=== PATIENT | female | born 2000 | race Two or more races ===

== ENCOUNTER 2018-05-10 19:17 | Emergency (ER) | payer MEDICAID ==
[2018-05-10 19:38] LABS: ABSOLUTE EOSINOPHILS # (AUTO) 0.1 10^3/uL (0.0-0.6); ABSOLUTE LYMPHOCYTES (AUTO) 1.9 10^3/uL (0.5-4.7); ABSOLUTE MONOCYTES (AUTO) 0.6 10^3/uL (0.1-1.4); ABSOLUTE NEUT (AUTO) 5.8 10^3/uL (1.7-8.2); BASOPHILS % (AUTO) 0.3 % (0-2); HEMATOCRIT 36.2 % (36.0-47.0); HEMOGLOBIN 12.1 g/dL (12.0-15.5); LYMPHOCYTES % (AUTO) 22.8 % (13-45); MEAN CORPUSCULAR HEMOGLOBIN 24.3 pg (27.0-33.4); MEAN CORPUSCULAR HGB CONC 33.5 g/dL (32.0-36.0); MEAN CORPUSCULAR VOLUME 73 fl (80-97); MONOCYTES % (AUTO) 6.7 % (3-13); PLATELET COUNT 369 10^3/uL (150-450); RED BLOOD COUNT 4.99 10^6/uL (3.72-5.28); RED CELL DISTRIBUTION WIDTH 17.7 % (11.5-14.0); SEGMENTED NEUTROPHILS % (AUTO) 69.2 % (42-78); TOTAL CELLS COUNTED % (AUTO) 100 %; WHITE BLOOD COUNT 8.3 10^3/uL (4.0-10.5)
[2018-05-10 20:00] LABS: ALANINE AMINOTRANSFERASE 26 U/L (9-52); ALBUMIN 4.6 g/dL (3.5-5.0); ALKALINE PHOSPHATASE 62 U/L (38-126); ANION GAP 14 (5-19); ASPARTATE AMINO TRANSFERASE 24 U/L (14-36); BILIRUBIN,DIRECT 0.2 mg/dL (0.0-0.4); BILIRUBIN,TOTAL 0.5 mg/dL (0.2-1.3); BLOOD UREA NITROGEN 9 mg/dL (7-20); CALCIUM 9.7 mg/dL (8.4-10.2); CARBON DIOXIDE 27 mmol/L (22-30); CHLORIDE 102 mmol/L (98-107); GLUCOSE 84 mg/dL (75-110); POTASSIUM 3.6 mmol/L (3.6-5.0); SODIUM 142.6 mmol/L (137-145); TOTAL PROTEIN 7.9 g/dL (6.3-8.2)
[2018-05-10 20:02] LABS: ACETAMINOPHEN < 10 ug/mL (10-30); ALCOHOL < 10 mg/dL (NONE DETECTED); SALICYLATE < 1.0 mg/dL (2.0-20.0)
--- NOTE | 2018-05-10 20:20 | ER Document Report ---
ED General - General Chief Complaint: Possible Overdose Stated Complaint: POSSIBLE OVERDOSE Time Seen by Provider: 05/10/18 19:28 Cannot obtain history due to: Intoxicated, Altered mental status Notes: Patient is a 18-year-old female who presents after ingesting approximately 225 mg of diphenhydramine as well as an unknown cough medicine. History is difficult to obtain as the patient is somewhat lethargic on assessment but states that she was simply trying to sleep, has been stressed out recently, denies any attempt at trying to harm herself. She denies any wants of going to sleep and not waking up. She is unable to explain why she took so much other than saying that she has been having difficulty sleeping and really wanted to get a good night sleep. Apparently her significant other his eeo officer was at the house today, contacted EMS when they discovered the amount that she had consumed. Patient denies psychiatric history or any previous suicide attempts. TRAVEL OUTSIDE OF THE [place] IN LAST 30 DAYS: No - Related Data Allergies/Adverse Reactions: No Known Allergies Allergy (Unverified 05/10/18 19:39) Past Medical History - General Information source: Patient Cannot obtain history due to: Altered mental status - Social History Smoking Status: Former Smoker Chew tobacco use (# tins/day): No Frequency of alcohol use: None Drug Abuse: None Lives with: Spouse/Significant other Family History: Reviewed & Not Pertinent Patient has suicidal ideation: No Patient has homicidal ideation: No Renal/ Medical History: Denies: Hx Peritoneal Dialysis Review of Systems - Review of Systems -: Yes ROS unobtainable due to patient's medical condition Physical Exam - Vital signs Vitals: Resp Pulse Ox 20 100 05/10/18 19:22 05/10/18 19:22 Interpretation: Normal Notes: PHYSICAL EXAMINATION: GENERAL: Somewhat lethargic but responsive. Appears sedated HEAD: Atraumatic, normocephalic. EYES: Pupils equal round and reactive to light, extraocular movements intact, sclera anicteric, conjunctiva are normal. ENT: nares patent, oropharynx clear without exudates. Moist mucous membranes. NECK: Normal range of motion, supple without lymphadenopathy LUNGS: Breath sounds clear to auscultation bilaterally and equal. No wheezes rales or rhonchi. HEART: Regular rate and rhythm without murmurs ABDOMEN: Soft, nontender, normoactive bowel sounds. No guarding, no rebound. No masses appreciated. EXTREMITIES: Normal range of motion, no pitting or edema. No cyanosis. NEUROLOGICAL: No focal neurological deficits. Moves all extremities spontaneously and on command. PSYCH: Drowsy, sedated SKIN: Warm, Dry, normal turgor, no rashes or lesions noted. Course - Re-evaluation Re-evalutation: 05/10/18 20:55 Presentation of an overdose on diphenhydramine and unverified cough syrup what appears to be patient reported attempted just trying to sleep albeit with an inappropriate dose of medication. She continues to deny self-harm. Will reassess the patient when she is clinically sober to assess for safety. Poison control has been contacted, no specific recommendations. The patient continues on cardiac rehabilitation specialist. Standard psychiatric screening labs have been sent. 05/11/18 01:49 Patient is now completely awake, again continues to verify that at no point where she is attempting to harm herself, admits that she did not understand that taking this much Benadryl was dangerous. She has been cleared by poison control. Given that the patient provides a reasonable history, continues to adamantly deny any suicidal intent she is cleared for discharge and does not meet involuntary commitment criteria. At this time will discharge with return precautions and follow-up recommendations. Verbal discharge instructions given a the bedside and opportunity for questions given. Medication warnings reviewed. Patient is in agreement with this plan and has verbalized understanding of return precautions and the need for primary care follow-up in the next 24-72 hours. - Vital Signs Vital signs: Temp Pulse Resp BP Pulse Ox 99.5 F 87 16 128/84 H 100 05/10/18 19:28 05/10/18 19:28 05/11/18 01:01 05/11/18 01:01 05/11/18 01:01 - Laboratory Result Diagrams: 05/10/18 19:20 05/10/18 19:20 Laboratory results interpreted by me: 05/10/18 05/10/18 19:20 19:20 MCV 73 L MCH 24.3 L RDW 17.7 H Salicylates < 1.0 L Acetaminophen < 10 L Discharge - Discharge Clinical Impression: Diphenhydramine overdose Qualifiers: Encounter type: initial encounter Injury intent: accidental or unintentional Qualified Code(s): T45.0X1A - Poisoning by antiallergic and antiemetic drugs, accidental (unintentional), initial encounter Condition: Good Disposition: HOME, SELF-CARE Additional Instructions: Please never misuse any medication that you are either prescribed or purchase [id number]. Take exactly as directed as misuse of common medications such as Benadryl can be very dangerous. Return for any additional concerns you may have.
[2018-05-11 02:03] VITALS: BP 120/76
== END 2018-05-11 05:45 | disposition home or self-care (01) ==
LOC: ER 19:17
DX: T45.0X1A Poisoning by antiallergic and antiemetic drugs, accidental (unintentional), initial encounter (principal); R41.82 Altered mental status, unspecified; R53.83 Other fatigue; Z79.899 Other long term (current) drug therapy; Z87.891 Personal history of nicotine dependence
CPT/HCPCS: 36415; 80053; 80307; 84703; 85025; 99284

== ENCOUNTER 2018-09-07 19:03 | Emergency (ER) | payer MEDICAID ==
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
[2018-09-07 20:17] LABS: APPEARANCE,URINE SLIGHTLY-CLOUDY; BILIRUBIN,URINE NEGATIVE (NEGATIVE); COLOR,URINE YELLOW; GLUCOSE, URINE NEGATIVE (NEGATIVE); KETONES,URINE NEGATIVE (NEGATIVE); LEUKOCYTE ESTERASE,URINE LARGE (NEGATIVE); NITRITE,URINE NEGATIVE (NEGATIVE); PROTEIN,URINE NEGATIVE (NEGATIVE); URINE SPECIFIC GRAVITY 1.017; UROBILINOGEN,URINE NEGATIVE mg/dL (<2.0)
[2018-09-07 20:29] LABS: BACTERIA (WET MOUNT) 4+ BACTERIA SEEN; EPITHELIALS (WET MOUNT) 3+ EPITHELIALS SEEN; RBCS (WET MOUNT) FEW RBCS SEEN; T.VAGINALIS (WET MOUNT) NO TRICHOMONAS SEEN; WBCS (WET MOUNT) 2+ WBCS SEEN; YEAST (WET MOUNT) YEAST SEEN
[2018-09-07] MEDS ORDERED: CEFTRIAXONE INJ 250 MG VIAL IM ONE (20:46)
[2018-09-07] MEDS ORDERED: LIDOCAINE 1% INJ-PF (10 MG/ML) 30 ML SDV INJ ONE (20:46)
[2018-09-07] MEDS ORDERED: AZITHROMYCIN 250 MG TABLET PO ONE (20:46)
[2018-09-07] MEDS ORDERED: FLUCONAZOLE 100 MG TABLET PO ONE (20:47)
[2018-09-07 21:50] LABS: CHLAM PCR NOT DETECTED (NOT DETECT); GON PCR NOT DETECTED (NOT DETECT)
[2018-09-07 21:59] VITALS: BP 135/84
== END 2018-09-07 22:00 | disposition home or self-care (01) ==
LOC: ER 19:03
DX: B37.49 Other urogenital candidiasis (principal)
CPT/HCPCS: 99283; 96372; 87210; 81001; 87491; 87591; Q0144; J3490 ×2; J0696

== ENCOUNTER 2019-06-12 22:14 | Emergency (ER) | payer SELFPAY ==
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
[2019-06-12 23:22] LABS: APPEARANCE,URINE CLOUDY; BILIRUBIN,URINE NEGATIVE (NEGATIVE); COLOR,URINE YELLOW; GLUCOSE, URINE NEGATIVE (NEGATIVE); KETONES,URINE NEGATIVE (NEGATIVE); LEUKOCYTE ESTERASE,URINE SMALL (NEGATIVE); NITRITE,URINE NEGATIVE (NEGATIVE); PROTEIN,URINE NEGATIVE (NEGATIVE); URINE SPECIFIC GRAVITY 1.014; UROBILINOGEN,URINE NEGATIVE mg/dL (<2.0)
[2019-06-12 23:31] LABS: ABSOLUTE BASOPHILS # (AUTO) 0.1 10^3/uL (0.0-0.2); ABSOLUTE EOSINOPHILS # (AUTO) 0.1 10^3/uL (0.0-0.6); ABSOLUTE LYMPHOCYTES (AUTO) 2.4 10^3/uL (0.5-4.7); ABSOLUTE MONOCYTES (AUTO) 0.6 10^3/uL (0.1-1.4); ABSOLUTE NEUT (AUTO) 4.5 10^3/uL (1.7-8.2); BASOPHILS % (AUTO) 0.7 % (0-2); EOSINOPHILS % (AUTO) 1.4 % (0-6); HEMATOCRIT 32.9 % (36.0-47.0); HEMOGLOBIN 10.4 g/dL (12.0-15.5); LYMPHOCYTES % (AUTO) 31.2 % (13-45); MEAN CORPUSCULAR HEMOGLOBIN 21.2 pg (27.0-33.4); MEAN CORPUSCULAR HGB CONC 31.5 g/dL (32.0-36.0); MEAN CORPUSCULAR VOLUME 68 fl (80-97); MONOCYTES % (AUTO) 7.7 % (3-13); PLATELET COUNT 382 10^3/uL (150-450); RED BLOOD COUNT 4.88 10^6/uL (3.72-5.28); TOTAL CELLS COUNTED % (AUTO) 100 %; WHITE BLOOD COUNT 7.7 10^3/uL (4.0-10.5)
[2019-06-12 23:37] LABS: URINE AMPHETAMINES SCREEN NEGATIVE; URINE BARBITURATES SCREEN NEGATIVE; URINE BENZODIAZEPINES SCREEN NEGATIVE; URINE COCAINE SCREEN NEGATIVE; URINE MARIJUANA (THC) SCREEN NEGATIVE; URINE METHADONE SCREEN NEGATIVE; URINE PHENCYCLIDINE SCREEN NEGATIVE
[2019-06-12 23:51] LABS: ALBUMIN 4.6 g/dL (3.5-5.0); ALKALINE PHOSPHATASE 68 U/L (38-126); ANION GAP 11 (5-19); ASPARTATE AMINO TRANSFERASE 24 U/L (14-36); BILIRUBIN,DIRECT 0.1 mg/dL (0.0-0.4); BILIRUBIN,TOTAL 0.2 mg/dL (0.2-1.3); BLOOD UREA NITROGEN 11 mg/dL (7-20); CALCIUM 9.7 mg/dL (8.4-10.2); CARBON DIOXIDE 28 mmol/L (22-30); CHLORIDE 103 mmol/L (98-107); GLUCOSE 93 mg/dL (75-110); TOTAL PROTEIN 7.9 g/dL (6.3-8.2)
[2019-06-12 23:55] LABS: ACETAMINOPHEN < 10 ug/mL (10-30); ALCOHOL < 10 mg/dL (NONE DETECTED); SALICYLATE < 1.0 mg/dL (2.0-20.0)
[2019-06-13] MEDS ORDERED: OLANZAPINE 2.5 MG TABLET PO ONE (12:04)
--- NOTE | 2019-06-13 12:51 | ER Document Report ---
Doctor's Note Notes: 06/13/19 12:00 PHYSICAL EXAMINATION: GENERAL: Well-appearing and in no acute distress. HEAD: Atraumatic, normocephalic. EYES: sclera anicteric, conjunctiva are normal. ENT: nares patent. Moist mucous membranes. NECK: Normal range of motion, supple without lymphadenopathy LUNGS: CTAB and equal. No wheezes rales or rhonchi. HEART: Regular rate and rhythm without murmurs EXTREMITIES: Normal range of motion, no pitting edema. No cyanosis. BACK: No midline tenderness, no step-off or deformity. No CVA tenderness NEUROLOGICAL: Cranial nerves grossly intact. Normal speech. Normal gait. PSYCH: Normal mood, normal affect. SKIN: Warm, Dry, normal turgor, no rashes or lesions noted Patient is medically clear for discharge or transfer pending mental health evaluation. Patient's labs reviewed as well as vital signs and notes. Patient states she has concerns about discharge home as her mother kicked her out and she has no place to go although she does have an aunt who would let her stay with her. The aunt does live out of [facility] and patient is currently on probation and cannot leave the [facility]. 06/13/19 12:50 Consulted with media planner Satish Pompa who will speak with patient and provide her resource information. Mental health team feels that patient does not meet IVC criteria and is stable for discharge at this time. They do recommend giving patient a prescription for Zyprexa 2.5 mg twice a day.
--- NOTE | 2019-06-13 13:07 | EKG REPORT ---
SEVERITY:- NORMAL ECG - SINUS RHYTHM : Confirmed by: Jennie Camarena MD 13-Jun-2019 13:07:26
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
[2019-06-13 13:41] VITALS: BP 134/89
== END 2019-06-13 13:46 | disposition home or self-care (01) ==
LOC: ER 22:14
DX: F32.9 Major depressive disorder, single episode, unspecified (principal); Z62.820 Parent-biological child conflict; R40.0 Somnolence; D64.9 Anemia, unspecified
CPT/HCPCS: 93005; 99285; 36415; 80307 ×4; 84703; 85025; 80053; 81001; 93010; J3490

== ENCOUNTER 2019-07-11 15:13 | Emergency (ER) | payer SELFPAY ==
--- NOTE | 2019-07-11 16:12 | ER Document Report ---
ED Medical Screen (RME) - General Chief Complaint: Psych Problem Stated Complaint: POSSIBLE SUICIDAL IDEATION Time Seen by Provider: 07/11/19 16:10 Mode of Arrival: Ambulatory Information source: Patient Notes: Patient presents with mobile road worker reporting suicidal and homicidal ideation. Patient does have a history of depression and was recently started on Zyprexa 3 weeks ago. Patient denies any improvement of her depression symptoms. Patient does have a plan to use a friend's gun. Patient also admits to recent cocaine and marijuana use on . I have greeted and performed a rapid initial assessment of this patient. A comprehensive ED assessment and evaluation of the patient, analysis of test results and completion of the medical decision making process will be conducted by additional ED providers. TRAVEL OUTSIDE OF THE [place] IN LAST 30 DAYS: No - Related Data Allergies/Adverse Reactions: No Known Allergies Allergy (Verified 04/23/19 20:19) Past Medical History Renal/ Medical History: Denies: Hx Peritoneal Dialysis Psychiatric Medical History: Reports: Hx Depression - Immunizations Immunizations up to date: Yes Hx Diphtheria, Pertussis, Tetanus Vaccination: Yes Physical Exam - General General appearance: Appears well, Alert - Psychological Associated symptoms: Depressed
[2019-07-11 17:06] LABS: ALBUMIN 4.7 g/dL (3.5-5.0); ALKALINE PHOSPHATASE 83 U/L (38-126); ANION GAP 9 (5-19); ASPARTATE AMINO TRANSFERASE 26 U/L (14-36); BILIRUBIN,DIRECT 0.2 mg/dL (0.0-0.4); BILIRUBIN,TOTAL 0.3 mg/dL (0.2-1.3); BLOOD UREA NITROGEN 15 mg/dL (7-20); CALCIUM 9.5 mg/dL (8.4-10.2); CARBON DIOXIDE 27 mmol/L (22-30); CHLORIDE 105 mmol/L (98-107); GLUCOSE 92 mg/dL (75-110); POTASSIUM 4.2 mmol/L (3.6-5.0); TOTAL PROTEIN 7.9 g/dL (6.3-8.2)
[2019-07-11 17:07] LABS: ACETAMINOPHEN < 10 ug/mL (10-30); ALCOHOL < 10 mg/dL (NONE DETECTED); SALICYLATE < 1.0 mg/dL (2.0-20.0)
[2019-07-11 18:03] LABS: ABSOLUTE BASOPHILS # (AUTO) 0.1 10^3/uL (0.0-0.2); ABSOLUTE EOSINOPHILS # (AUTO) 0.1 10^3/uL (0.0-0.6); ABSOLUTE LYMPHOCYTES (AUTO) 2.2 10^3/uL (0.5-4.7); ABSOLUTE MONOCYTES (AUTO) 0.5 10^3/uL (0.1-1.4); ABSOLUTE NEUT (AUTO) 4.8 10^3/uL (1.7-8.2); BASOPHILS % (AUTO) 0.7 % (0-2); EOSINOPHILS % (AUTO) 1.7 % (0-6); HEMATOCRIT 31.1 % (36.0-47.0); HEMOGLOBIN 10.1 g/dL (12.0-15.5); LYMPHOCYTES % (AUTO) 28.9 % (13-45); MEAN CORPUSCULAR HEMOGLOBIN 21.4 pg (27.0-33.4); MEAN CORPUSCULAR HGB CONC 32.3 g/dL (32.0-36.0); MEAN CORPUSCULAR VOLUME 66 fl (80-97); MONOCYTES % (AUTO) 6.3 % (3-13); PLATELET COUNT 423 10^3/uL (150-450); RED CELL DISTRIBUTION WIDTH 18.1 % (11.5-14.0); SEGMENTED NEUTROPHILS % (AUTO) 62.4 % (42-78); TOTAL CELLS COUNTED % (AUTO) 100 %; WHITE BLOOD COUNT 7.7 10^3/uL (4.0-10.5)
--- NOTE | 2019-07-11 18:05 | PSYCHOLOGICAL NOTE ---
Psych Note - Psych Note Date seen by psych provider: 07/11/19 Time seen by psych provider: 17:10 Psych Note: Reason for consult: SI/HI Patient is a 19 year old female who presents to ED via POV accompanied by mobile crisis. Patient was last seen by behavioral health on .06/13/19. Cluster B traits were noted. The following information was obtained by Megan with [facility]. Patient endorses SI/HI with her financial aid officer. Patient states her "depression has gotton worse" on Zyprexa. Patient tested positive for cocaine and ETOH during her probation appointment, which resulted in her probation being violated. Patient has court date on 08/04/19. Patient states "things got better at home, but the depression got worse 1.5 weeks after" she started the Zyprexa. Patient complains of increased weight gain and blood pressure. Patient states last thought of SI was 2 days ago. Patient stated homicidal ideation was at no one in particular. Patient states she only felt suicidal "if I can't get help, I don't care to be alive." Patient stated she has no access to a gun. Patient states she told the mobile milk house worker that if she wanted to "I'd go buy one." Patient states she has no access to a gun. Patient states she "hung out with a friend" who provided her with cocaine because "I was depressed." Patient did not follow up with outpatient mental health treatment due to a lack of transportation. Patient stated her urine drug screen was also positive for meth. Patient told ED Physician she was not evaluated by behavioral health. Clinician informed patient that there is communication between hospital staff. Clinician confronted patient regarding the inconsistencies in her stories. Patient maintains she did not tell anyone (ED Physician, mobile crisis, financial aid officer) that she was suicidal. Patient states she never told anyone she had access to a weapon. Patient was informed she has an appointment with her financial aid officer on Sunday, July 14, 2019. Clinician notes a look of surprise on patient's face as clinician explained the legal ability of multidisciplinary collaboration. Patient maintains the Zyprexa is the source of her recent issues. Clinician provided psychoeducation regarding behavior, conse quences, and ownership of consequences. Patient is alert and oriented to person, place, time and circumstance. Mood is eurythmic with congruent affect as evidenced by smiling, laughing, and engageme nt with clinician. Patient denies current suicidal and homicidal ideations. Delusions are absent and behavior is congruent with an intact reality based presentation (i.e.: organized and linear through processes). There is no observed behavior that suggests patient is responding to internal stimuli. Patient denies current auditory and visual hallucinations. Eye contact is appropriate. Conversational speech is within normal rate, tone, and prosody. Intellectual ability appears to be within average range. Attention and concentration are good. Insight, judgment and impulse control are currently po or. Medication recommendations per [facility] contracted psychiatrist Dr. June RICE is as follows: NONE Impression/Plan: Patient denies suicidal and homicidal ideations. There is no observed behavior that suggests patient is responding to internal stimuli. Patient denies current auditory and visual hallucinations. Patient denies having access to weapons, and given her felony status, it is highly unlikely she would be able to purchase a gun. Patient's presentation is similar to her last visit in which she sought medical and mental health services to deflect attention away from her behavior (in this case, substance use that resulted in her probation being violated). Dr. Ramírez was consulted on the care and management of this patient; attending physician is in agreement with recommendations and disposition.
--- NOTE | 2019-07-11 19:03 | ER Document Report ---
ED Psych Disorder / Suicide <DARRYL RAMOS - Last Filed: 07/11/19 19:04> - General Mode of Arrival: Ambulatory TRAVEL OUTSIDE OF THE [place] IN LAST 30 DAYS: No - HPI Patient complains to provider of: Suicidal ideation Quality of pain: No pain <RICK CHERRY - Last Filed: 07/12/19 00:08> - General Chief Complaint: Psych Problem Stated Complaint: POSSIBLE SUICIDAL IDEATION Time Seen by Provider: 07/11/19 16:10 Primary Care Provider: [facility] [Outside] - Follow up as needed Notes: Patient is a 19-year-old female who states that she came in today because she is feeling more depressed. Apparently patient states she has been taking Zyprexa and thinks that that makes her more angry and has had suicidal thoughts. She do es not have a plan. She apparently used cocaine and marijuana and youth officer found this in he r urine. Patient had expressed depression and some suicidal ideation to youth officer who then sent her to the ER for evaluation. (RICK CHERRY) - Related Data Allergies/Adverse Reactions: No Known Allergies Allergy (Verified 04/23/19 20:19) Past Medical History - General Information source: Patient - Social History Smoking Status: Unknown if Ever Smoked Drug Abuse: Cocaine, Marijuana Family History: Reviewed & Not Pertinent Patient has suicidal ideation: Yes Patient has homicidal ideation: Yes Renal/ Medical History: Denies: Hx Peritoneal Dialysis Psychiatric Medical History: Reports: Hx Depression - Immunizations Immunizations up to date: Yes Hx Diphtheria, Pertussis, Tetanus Vaccination: Yes <RICK CHERRY - Last Filed: 07/12/19 00:08> Review of Systems - Review of Systems -: Yes All other systems reviewed and negative <RICK CHERRY - Last Filed: 07/12/19 00:08> Physical Exam - Vital signs Interpretation: Normal - General General appearance: Appears well, Alert - HEENT Head: Normocephalic, Atraumatic Eyes: Normal Pupils: PERRL - Respiratory Respiratory status: No respiratory distress Chest status: Nontender Breath sounds: Normal Chest palpation: Normal - Cardiovascular Rhythm: Regular Heart sounds: Normal auscultation Murmur: No - Abdominal Inspection: Normal Distension: No distension Bowel sounds: Normal Tenderness: Nontender Organomegaly: No organomegaly - Back Back: Normal, Nontender - Extremities General upper extremity: Normal inspection, Nontender, Normal color, Normal ROM, Normal temperature General lower extremity: Normal inspection, Nontender, Normal color, Normal ROM, Normal temperature, Normal weight bearing. No: Josiane's sign - Neurological Neuro grossly intact: Yes Cognition: Normal Orientation: AAOx4 [place] Coma Scale Eye Opening: Spontaneous [place] Coma Scale Verbal: Oriented [place] Coma Scale Motor: Obeys Commands [place] Coma Scale Total: 15 Speech: Normal Motor strength normal: LUE, RUE, LLE, RLE Sensory: Normal - Psychological Associated symptoms: Normal affect, Normal mood - Skin Skin Temperature: Warm Skin Moisture: Dry Skin Color: Normal <RICK CHERRY - Last Filed: 07/12/19 00:08> - Vital signs Vitals: Temp Pulse Resp BP Pulse Ox 98.8 F 87 18 130/92 H 97 07/11/19 15:33 07/11/19 15:33 07/11/19 15:33 07/11/19 15:33 07/11/19 15:33 Course - Laboratory Result Diagrams: 07/11/19 16:30 07/11/19 16:30 <DARRYL RAMOS - Last Filed: 07/11/19 19:04> - Laboratory Result Diagrams: 07/11/19 16:30 07/11/19 16:30 <RICK CHERRY - Last Filed: 07/12/19 00:08> - Re-evaluation Re-evalutation: 07/11/19 19:03 Patient appears well. She is medically stable. Per mental health, patient is not currently suicidal and is stable for discharge home. Patient is to return if she has any further concerns or problems. Understands agrees with plan. Stable for discharge. (RICK CHERRY) - Vital Signs Vital signs: Temp Pulse Resp BP Pulse Ox 98.2 F 84 20 115/76 99 07/11/19 19:47 07/11/19 19:47 07/11/19 19:47 07/11/19 19:47 07/11/19 19:47 - Laboratory Laboratory results interpreted by sc: 07/11/19 07/11/19 16:30 16:30 Hgb 10.1 L Hct 31.1 L MCV 66 L MCH 21.4 L RDW 18.1 H Salicylates < 1.0 L Acetaminophen < 10 L Discharge <DARRYL RAMOS - Last Filed: 07/11/19 19:04> <DILIPRICK ANN - Last Filed: 07/12/19 00:08> - Discharge Clinical Impression: Depression Qualifiers: Depression Type: unspecified Qualified Code(s): F32.9 - Major depressive disorder, single episode, unspecified Condition: Stable Disposition: HOME, SELF-CARE Additional Instructions: You have been evaluated by both medical and behavioral health teams and have been deemed appropriate for discharge. You are highly encouraged to follow up with a mental health provider. You are encouraged to abstain from all illicit substance use. Please do not forget your appointment with your youth officer on Sunday, July 14, 2019 at 9:00am. You are being provided with the contact number for mobile crisis, as needed. DEPRESSION: Your evaluation reveals that you may have mental depression. While symptoms may be vague, they often include disturbance of sleep, fatigue, loss of appetite, and general loss of interest in life. While depression may be a side effect of drugs, or a reaction to a major change in your life, many cases have no known cause. If depression is acute, and related to a major loss in your life, you can expect it to clear completely with time. If you have been depressed a long time, are prone to repeated bouts of depression or low mood, or have been thinking of suicide, get help. Depression can be treated with anti-depressant medication and counselling. Long-term depression will often take a few weeks to clear, even with appropriate medication. Follow-up care is important. COCAINE ABUSE: Cocaine causes many dangerous medical problems. Problems can occur even with "usual" amounts. Cocaine affects judgement, creating a sense of invulnerability. Cocaine users often make bad decisions that seem "great" at the time. Most cocaine users eventually will be hurt by bad job performance, damaged personal relations, crime, and unsafe sexual practices. Toxic effects of cocaine can include seizures, hallucinations, delusions, high blood pressure, heart damage, or sudden . There's always the risk of a "bad batch." But heart attacks, brain hemorrhages, or cardiac arrest can occur unpredictably even with "normal" use. Injection of cocaine is risky for abscesses, endocarditis (heart infection), pneumonia, and AIDS. Withdrawal from cocaine often causes anxiety and drug cravings. Some users become paranoid and psychotic. Many treatment programs are available, but you must make the decision to quit. Medication can be prescribed to control the symptoms of cocaine toxicity (beta blockers or benzodiazepines). Withdrawal symptoms may require tranquilizers. AMPHETAMINE / METHAMPHETAMINE ABUSE: Amphetamines are addicting stimulants. Amphetamines overstimulate the nervous system and give a false feeling of power and mastery. These drugs may be obtained as prescription pills for weight loss, narcolepsy, or attention-deficit disorder. More often they're bought as an illegal street drug, methamphetamine (crank, crystal, speed). Using amphetamines repeatedly can lead to serious medical problems including malnutrition, severe depression, and paranoia. It can take increasing amounts to feel good. Eventually, there will be a "burn out." When you go off amphetamines there is a period of depression that may last for weeks or even months. High doses of amphetamines can cause seizures, confusion, hallucinations, delusions, high blood pressure, muscle damage, heart damage, or sudden . Many times these deadly complications occur even with "normal" doses. Injection of amphetamines is risky for developing abscesses, endocarditis (heart infection), pneumonia, and AIDS. Withdrawal from amphetamines often causes anxiety, depression, and drug cravings. Some users become paranoid and psychotic. There may be cramps, nausea, and vomiting. Many treatment programs are available, but you must make the decision to quit. Medication can be prescribed to control the symptoms of amphetamine toxicity (beta blockers or benzodiazepines). Withdrawal symptoms may require tranquilizers. AT ANY TIME, IF YOUR SYMPTOMS CHANGE SIGNIFICANTLY OR WORSEN OR YOU DEVELOP NEW SYMPTOMS, RETURN TO THE EMERGENCY DEPARTMENT IMMEDIATELY FOR RE-EVALUATION. Referrals: [facility] [Outside] - Follow up as needed
--- NOTE | 2019-07-11 19:48 | EKG REPORT ---
SEVERITY:- BORDERLINE ECG - SINUS RHYTHM BORDERLINE PROLONGED QT INTERVAL : Confirmed by: Villa Cueto MD 11-Jul-2019 19:47:19
[2019-07-11 20:15] VITALS: BP 115/76
== END 2019-07-11 19:47 | disposition home or self-care (01) ==
LOC: ER 15:13
DX: F32.9 Major depressive disorder, single episode, unspecified (principal); F14.90 Cocaine use, unspecified, uncomplicated; F12.90 Cannabis use, unspecified, uncomplicated
CPT/HCPCS: 36415; 80053; 80307; 84703; 85025; 93005; 93010; 99284